=== PATIENT | female | born 1995 | race Caucasian/White ===

== ENCOUNTER → 2017-05-19 | Outpatient (CLI) | payer MEDICAID | LOC: RAD 15:49 | DX: M54.5 Low back pain (principal); M54.6 Pain in thoracic spine | CPT/HCPCS: 72072; 72110 ==

== ENCOUNTER 2022-03-17 08:15 | Emergency (ER) | payer OTHER ==
[~2022-03-17 08:15] MED LIST: CEFUROXIME500 MG PO; KEFLEX CAP 500500 MG PO; LODINE CAP 300300 MG PO; MACROBID 100 M100 MG PO; PYRIDIUM100 MG PO; ZOFRAN ODT 4 MG4 MG SL
== END 2022-03-17 09:37 | disposition home or self-care (01) ==
LOC: ER1 08:15
DX: L55.0 Sunburn of first degree (principal)
CPT/HCPCS: 99282

== ENCOUNTER 2022-04-01 11:09 | Emergency (ER) | payer OTHER | END 2022-04-01 13:26 | disposition home or self-care (01) | LOC: ER1 11:09 | DX: U07.1 COVID-19 (principal); F17.290 Nicotine dependence, other tobacco product, uncomplicated | CPT/HCPCS: 0240U; 99284 ==